=== PATIENT | female | born 1990 | race Asian ===

== ENCOUNTER 2023-04-19 15:45 | Inpatient (IN) | payer OTHER, SELFPAY ==
[2023-04-19] VITALS (9 sets, daily range): BP systolic 120–144; BP diastolic 68–81; PULSE 80–87; RESP 16–17; TEMP 36.5–36.6; O2SAT 99–100; BMI 25.9
--- NOTE | 2023-04-19 15:55 | ED.GENADULT ---
HPI - General Adult <Rico Henao DO - Last Filed: 04/20/23 07:02> General Chief complaint: Abdominal Pain Stated complaint: STOMACH PAIN/RIGHT SIDE GALLBLADDER POSSIBLY Time Seen by Provider: 04/19/23 15:53 Source: patient and family Mode of arrival: Ambulatory Limitations: no limitations History of Present Illness HPI narrative: 32-year-old female who is here for evaluation of upper abdominal discomfort. She states that she is had pain in this area off and on for sometimes specifically after eating spicy food however it has become more frequent recently. She denies any urinary symptoms. No constipation or diarrhea. No urinary symptoms. No chest pain or shortness of breath. No fevers. No prior abdominal surgeries. Has not tried anything for symptoms prior to arrival. Related Data Previous Rx's Medication Instructions Recorded drospirenone 3 mg-ethinyl 1 tab PO DAILY #28 tabs 12/09/22 estradiol 0.02 mg tablet (CHONG (28)) Allergies Allergy/AdvReac Type Severity Reaction Status Date / Time No Known Drug Allergies Allergy Verified 04/19/23 15:56 Review of Systems <Rico Henao DO - Last Filed: 04/20/23 07:02> Constitutional Constitutional: Reports system reviewed and no additional complaints, except as documented Cardiovascular Cardiovascular: Reports system reviewed and no additional complaints, except as documented Respiratory Respiratory: Reports system reviewed and no additional complaints, except as documented Gastrointestinal Gastrointestinal: Reports system reviewed and no additional complaints, except as documented Musculoskeletal Musculoskeletal: Reports system reviewed and no additional complaints, except as documented Integumentary/Breasts Skin/Breast: Reports system reviewed and no additional complaints, except as documented Hematologic/Lymphatic On Anticoagulants: No Patient History <Rico Henao DO - Last Filed: 04/20/23 07:02> Social History household members: spouse Smoking Status: Never smoker Smoking Status: Never smoker Exam <Rico Henao DO - Last Filed: 04/20/23 07:02> Initial Vital Signs Initial Vital Signs: Vital Signs Temperature 97.9 F 04/19/23 15:52 Pulse Rate 80 04/19/23 15:52 Respiratory Rate 17 04/19/23 15:52 Blood Pressure 144/81 H 04/19/23 15:52 Pulse Oximetry 100 04/19/23 15:52 Oxygen Delivery Method Room Air 04/19/23 15:52 HENMT Head: normal to inspection and normocephalic Resp Effort & Inspection: normal respiratory effort Auscultation: clear to auscultation bilaterally Cardio Rate: regular rate GI Inspection: normal to inspection and distended Palpation: soft, No firm, No guarding and tender (Right upper quadrant) Skin General: no rashes or lesions noted Neuro General: patient alert, patient awake and moves all extremities Extrem General: capillary refill normal <Lidia Raymond MD - Last Filed: 04/19/23 19:37> Initial Vital Signs Initial Vital Signs: Vital Signs Temperature 97.9 F 04/19/23 15:52 Pulse Rate 80 04/19/23 15:52 Respiratory Rate 17 04/19/23 15:52 Blood Pressure 144/81 H 04/19/23 15:52 Pulse Oximetry 100 04/19/23 15:52 Oxygen Delivery Method Room Air 04/19/23 15:52 Course <Rico Henao DO - Last Filed: 04/20/23 07:02> Orders Ordered: Hydromorphone HCl (Hydromorphone 0.5 Mg Inj) 0.5 mg IV Q2H PRN PRN Reason: Pain, Severe (7-10) Last Admin: 04/19/23 22:47 Dose: 0.5 mg Documented By: AT Sodium Chloride (Normal Saline 0.9%) 1,000 mls @ 125 mls/hr IV CONT ALEXANDRA Last Admin: 04/20/23 03:46 Dose: 125 mls/hr Documented By: Infusion: 04/20/23 03:46 Dose: 125 mls/hr Documented By: Admin: 04/19/23 19:52 Dose: 125 mls/hr Documented By: Discontinued Medications Al Hydrox/Mg Hydrox/Simethicone 20 ml/ Lidocaine HCl 15 ml 0 ml PO NOW ONE Stop: 04/19/23 16:00 Last Admin: 04/19/23 16:26 Dose: 20 ml Documented By: MPO Sodium Chloride (Normal Saline 0.9%) 1,000 mls @ 1,000 mls/hr IV BOLUS ONE Stop: 04/19/23 16:58 Last Infusion: 04/19/23 17:35 Dose: 0 mls/hr Documented By: Admin: 04/19/23 16:25 Dose: 1,000 mls/hr Documented By: MPO Pantoprazole Sodium (Pantoprazole 40 Mg Vial) 40 mg IV NOW ONE Stop: 04/19/23 16:00 Last Admin: 04/19/23 16:25 Dose: 40 mg Documented By: MPO Vital Signs Vital signs: Vital Signs - 8 hr 04/19/23 15:52 04/19/23 17:39 04/19/23 17:41 Temperature 97.9 F Pulse Rate 80 Respiratory Rate 17 Blood Pressure 144/81 H 144/81 H 131/68 Pulse Oximetry 100 Oxygen Delivery Method Room Air 04/19/23 17:41 04/19/23 17:45 04/19/23 18:00 Temperature Pulse Rate 83 83 87 Respiratory Rate Blood Pressure Pulse Oximetry 100 100 100 Oxygen Delivery Method 04/19/23 18:15 04/19/23 18:30 04/19/23 18:39 Temperature Pulse Rate 83 84 Respiratory Rate Blood Pressure 120/78 Pulse Oximetry 100 99 Oxygen Delivery Method 04/19/23 18:39 Temperature Pulse Rate 87 Respiratory Rate Blood Pressure Pulse Oximetry 100 Oxygen Delivery Method <Lidia Raymond MD - Last Filed: 04/19/23 19:37> Orders Ordered: Hydromorphone HCl (Hydromorphone 0.5 Mg Inj) 0.5 mg IV Q2H PRN PRN Reason: Pain, Severe (7-10) Last Admin: 04/19/23 22:47 Dose: 0.5 mg Documented By: AT Sodium Chloride (Normal Saline 0.9%) 1,000 mls @ 125 mls/hr IV CONT ALEXANDRA Last Admin: 04/20/23 03:46 Dose: 125 mls/hr Documented By: Infusion: 04/20/23 03:46 Dose: 125 mls/hr Documented By: Admin: 04/19/23 19:52 Dose: 125 mls/hr Documented By: Discontinued Medications Al Hydrox/Mg Hydrox/Simethicone 20 ml/ Lidocaine HCl 15 ml 0 ml PO NOW ONE Stop: 04/19/23 16:00 Last Admin: 04/19/23 16:26 Dose: 20 ml Documented By: MPO Sodium Chloride (Normal Saline 0.9%) 1,000 mls @ 1,000 mls/hr IV BOLUS ONE Stop: 04/19/23 16:58 Last Infusion: 04/19/23 17:35 Dose: 0 mls/hr Documented By: Admin: 04/19/23 16:25 Dose: 1,000 mls/hr Documented By: MERLENE Pantoprazole Sodium (Pantoprazole 40 Mg Vial) 40 mg IV NOW ONE Stop: 04/19/23 16:00 Last Admin: 04/19/23 16:25 Dose: 40 mg Documented By: MERLENE Vital Signs Vital signs: Vital Signs - 8 hr 04/19/23 15:52 04/19/23 17:39 04/19/23 17:41 Temperature 97.9 F Pulse Rate 80 Respiratory Rate 17 Blood Pressure 144/81 H 144/81 H 131/68 Pulse Oximetry 100 Oxygen Delivery Method Room Air 04/19/23 17:41 04/19/23 17:45 04/19/23 18:00 Temperature Pulse Rate 83 83 87 Respiratory Rate Blood Pressure Pulse Oximetry 100 100 100 Oxygen Delivery Method 04/19/23 18:15 04/19/23 18:30 04/19/23 18:39 Temperature Pulse Rate 83 84 Respiratory Rate Blood Pressure 120/78 Pulse Oximetry 100 99 Oxygen Delivery Method 04/19/23 18:39 Temperature Pulse Rate 87 Respiratory Rate Blood Pressure Pulse Oximetry 100 Oxygen Delivery Method Medical Decision Making <Rico Henao DO - Last Filed: 04/20/23 07:02> Lab Data Lab results reviewed: Yes I reviewed the patient's lab results. 04/19/23 16:02 04/19/23 16:02 Labs: Lab Results 04/19/23 04/19/23 04/19/23 Range/Units 16:02 16:02 16:02 WBC 11.9 H (4.5-11.0) X10^3/uL RBC 4.72 (4.0-5.2) X10^6/uL Hgb 13.0 (12.0-16.0) g/dL Hct 39.4 (36-46) % MCV 83.4 (80-100) fL MCH 27.5 (26-34) PG MCHC 33.0 (30-36) % RDW 12.6 (11.6-14.8) % Plt Count 410 H (150-400) X10^3/uL Neut % (Auto) 70.7 (50-75) % Lymph % (Auto) 18.9 L (25-40) % [place] % (Auto) 6.5 (3-14) % Eos % (Auto) 3.5 (2-4) % Baso % (Auto) 0.4 (0-2) % Neut # (Auto) 8400 H (1112-7386) /uL Lymph # (Auto) 2200 (7551-7449) /uL [place] # (Auto) 800 (0-900) /uL Eos # (Auto) 400 (0-450) /uL Baso # (Auto) 0 (0-100) /uL Sodium 137 (137-145) mmol/L Potassium 3.9 (3.4-5.1) mmol/L Chloride 102 (98-107) mmol/L Carbon Dioxide 27 (22-32) mmol/L BUN 7 (7-17) mg/dL Creatinine 0.62 (0.52-1.04) mg/dL Estimated GFR > 60 (>60) mL/min BUN/Creatinine Ratio 11.3 (6-22) Glucose 129 H (70-100) mg/dL Calcium 9.9 (8.4-10.2) mg/dL Total Bilirubin 2.0 H (0.2-1.3) mg/dL AST 230 H (14-36) IU/L ALT 168 H (<35) IU/L Alkaline Phosphatase 104 (38-126) U/L Total Protein 8.7 H (6.3-8.2) g/dL Albumin 4.5 (3.5-5.0) g/dL Globulin 4.2 H (1.7-4.1) g/dL Albumin/Globulin Ratio 1.1 (1.0-2.8) Lipase 68 (23-300) U/L Serum , Qual (Negative) 04/19/23 Range/Units 16:02 WBC (4.5-11.0) X10^3/uL RBC (4.0-5.2) X10^6/uL Hgb (12.0-16.0) g/dL Hct (36-46) % MCV (80-100) fL MCH (26-34) PG MCHC (30-36) % RDW (11.6-14.8) % Plt Count (150-400) X10^3/uL Neut % (Auto) (50-75) % Lymph % (Auto) (25-40) % [place] % (Auto) (3-14) % Eos % (Auto) (2-4) % Baso % (Auto) (0-2) % Neut # (Auto) (0674-4724) /uL Lymph # (Auto) (3484-0740) /uL [place] # (Auto) (0-900) /uL Eos # (Auto) (0-450) /uL Baso # (Auto) (0-100) /uL Sodium (137-145) mmol/L Potassium (3.4-5.1) mmol/L Chloride (98-107) mmol/L Carbon Dioxide (22-32) mmol/L BUN (7-17) mg/dL Creatinine (0.52-1.04) mg/dL Estimated GFR (>60) mL/min BUN/Creatinine Ratio (6-22) Glucose (70-100) mg/dL Calcium (8.4-10.2) mg/dL Total Bilirubin (0.2-1.3) mg/dL AST (14-36) IU/L ALT (<35) IU/L Alkaline Phosphatase (38-126) U/L Total Protein (6.3-8.2) g/dL Albumin (3.5-5.0) g/dL Globulin (1.7-4.1) g/dL Albumin/Globulin Ratio (1.0-2.8) Lipase (23-300) U/L Serum , Qual Negative (Negative) Urine Dip Bedside Urine Glucose Negative Bedside Urine Bilirubin - Negative Bedside Urine Ketone - Negative Urine Specific [place] 1.010 Bedside Urine Occult Blood - Negative Bedside Urine pH 6.0 Bedside Urine Protein - Negative Bedside Urine Urobilinogen - Negative Bedside Urine Nitrite - Negative Bedside Urine Leukocytes +++ 500 Esterase Point of care testing: Urine Dip Bedside Urine Glucose Negative Bedside Urine Bilirubin - Negative Bedside Urine Ketone - Negative Urine Specific [place] 1.010 Bedside Urine Occult Blood - Negative Bedside Urine pH 6.0 Bedside Urine Protein - Negative Bedside Urine Urobilinogen - Negative Bedside Urine Nitrite - Negative Bedside Urine Leukocytes +++ 500 Esterase Imaging Data US - abdomen: Radiologist's Impression: PROCEDURE: US ABDOMEN LIMITED ? INDICATIONS:? RIGHT UPPER QUADRANT PAIN ? TECHNIQUE:? Real-time focused scanning was performed of the abdomen, with image documentation.? ? COMPARISON:? None. ? FINDINGS:? Liver demonstrates mildly prominent size.? The liver demonstrates normal overall echogenicity.? Within the right liver, there is a nonvascular hyperechoic nonshadowing focus that measures up to 1.4 cm, which is attributed to a hemangioma. ? Multiple gallstones are seen within the fundus of the gallbladder.? These are nonmobile.? The largest measures 7 mm.? ? The gallbladder wall is not thickened, measuring 3 mm or less.? No specific pericholecystic fluid is seen.? The sonographic Roberts sign is negative. ? The cystic duct is enlarged at 7.3 mm.? The common bile duct is also mildly enlarged at 8.6 mm. ? No significant pancreatic abnormality is seen on these images.? ? Within the right kidney, there are 2 nonshadowing hyperechoic foci that measure up to 13 mm and up to 9 mm, which are attributed to benign fatty lesions. ? ? ? IMPRESSION:? Fundal gallstones seen, with an enlarged cystic duct.? There is mild suspicion for cholecystitis.? ? The common bile duct is also mildly enlarged. ? ? ? Additional findings:? Liver hemangioma Benign fat containing right renal lesions MDM Narrative Medical decision making narrative: Patient has epigastric discomfort has an elevated bilirubin. Elevated LFTs. Ultrasound is concerning for cholelithiasis and dilation of the common bile duct which is concerning for choledocholithiasis. Patient does have a benign abdominal exam. I do not have MRI capability at this facility currently. Care turned over to Dr. Raymond for disposition. <Lidia Raymond MD - Last Filed: 04/19/23 19:37> Lab Data Labs: Lab Results 04/19/23 04/19/23 04/19/23 Range/Units 16:02 16:02 16:02 WBC 11.9 H (4.5-11.0) X10^3/uL RBC 4.72 (4.0-5.2) X10^6/uL Hgb 13.0 (12.0-16.0) g/dL Hct 39.4 (36-46) % MCV 83.4 (80-100) fL MCH 27.5 (26-34) PG MCHC 33.0 (30-36) % RDW 12.6 (11.6-14.8) % Plt Count 410 H (150-400) X10^3/uL Neut % (Auto) 70.7 (50-75) % Lymph % (Auto) 18.9 L (25-40) % [place] % (Auto) 6.5 (3-14) % Eos % (Auto) 3.5 (2-4) % Baso % (Auto) 0.4 (0-2) % Neut # (Auto) 8400 H (0133-6783) /uL Lymph # (Auto) 2200 (4200-6044) /uL [place] # (Auto) 800 (0-900) /uL Eos # (Auto) 400 (0-450) /uL Baso # (Auto) 0 (0-100) /uL Sodium 137 (137-145) mmol/L Potassium 3.9 (3.4-5.1) mmol/L Chloride 102 (98-107) mmol/L Carbon Dioxide 27 (22-32) mmol/L BUN 7 (7-17) mg/dL Creatinine 0.62 (0.52-1.04) mg/dL Estimated GFR > 60 (>60) mL/min BUN/Creatinine Ratio 11.3 (6-22) Glucose 129 H (70-100) mg/dL Calcium 9.9 (8.4-10.2) mg/dL Total Bilirubin 2.0 H (0.2-1.3) mg/dL AST 230 H (14-36) IU/L ALT 168 H (<35) IU/L Alkaline Phosphatase 104 (38-126) U/L Total Protein 8.7 H (6.3-8.2) g/dL Albumin 4.5 (3.5-5.0) g/dL Globulin 4.2 H (1.7-4.1) g/dL Albumin/Globulin Ratio 1.1 (1.0-2.8) Lipase 68 (23-300) U/L Serum , Qual (Negative) 04/19/23 Range/Units 16:02 WBC (4.5-11.0) X10^3/uL RBC (4.0-5.2) X10^6/uL Hgb (12.0-16.0) g/dL Hct (36-46) % MCV (80-100) fL MCH (26-34) PG MCHC (30-36) % RDW (11.6-14.8) % Plt Count (150-400) X10^3/uL Neut % (Auto) (50-75) % Lymph % (Auto) (25-40) % [place] % (Auto) (3-14) % Eos % (Auto) (2-4) % Baso % (Auto) (0-2) % Neut # (Auto) (5749-7148) /uL Lymph # (Auto) (1064-0303) /uL [place] # (Auto) (0-900) /uL Eos # (Auto) (0-450) /uL Baso # (Auto) (0-100) /uL Sodium (137-145) mmol/L Potassium (3.4-5.1) mmol/L Chloride (98-107) mmol/L Carbon Dioxide (22-32) mmol/L BUN (7-17) mg/dL Creatinine (0.52-1.04) mg/dL Estimated GFR (>60) mL/min BUN/Creatinine Ratio (6-22) Glucose (70-100) mg/dL Calcium (8.4-10.2) mg/dL Total Bilirubin (0.2-1.3) mg/dL AST (14-36) IU/L ALT (<35) IU/L Alkaline Phosphatase (38-126) U/L Total Protein (6.3-8.2) g/dL Albumin (3.5-5.0) g/dL Globulin (1.7-4.1) g/dL Albumin/Globulin Ratio (1.0-2.8) Lipase (23-300) U/L Serum , Qual Negative (Negative) Urine Dip Bedside Urine Glucose Negative Bedside Urine Bilirubin - Negative Bedside Urine Ketone - Negative Urine Specific [place] 1.010 Bedside Urine Occult Blood - Negative Bedside Urine pH 6.0 Bedside Urine Protein - Negative Bedside Urine Urobilinogen - Negative Bedside Urine Nitrite - Negative Bedside Urine Leukocytes +++ 500 Esterase Point of care testing: Urine Dip Bedside Urine Glucose Negative Bedside Urine Bilirubin - Negative Bedside Urine Ketone - Negative Urine Specific [place] 1.010 Bedside Urine Occult Blood - Negative Bedside Urine pH 6.0 Bedside Urine Protein - Negative Bedside Urine Urobilinogen - Negative Bedside Urine Nitrite - Negative Bedside Urine Leukocytes +++ 500 Esterase [facility] Narrative Medical decision making narrative: Patient has epigastric discomfort has an elevated bilirubin. Elevated LFTs. Ultrasound is concerning for cholelithiasis and dilation of the common bile duct which is concerning for choledocholithiasis. Patient does have a benign abdominal exam. I do not have MRI capability at this facility currently. Care turned over to Dr. Raymond for disposition. Dr Raymond Care is accepted, patient is independently examined. Chart is reviewed. CBC has mild leukocytosis at 11.9 without left shift and no acute anemia Metabolic panel is remarkable for a bilirubin at 2, AST and ALT are relatively unremarkable lipase is reassuring Probable common duct stone with elevated bilirubin, AST and ALT without evidence of acute cholecystitis, ascending cholangitis or pancreatitis. She is still having colicky right upper quadrant pain. There is evidence of acute infection or sepsis, no indication for IV antibiotics at this time. Pain medication is offered. Consultation: Care is discussed with Dr. Thao, surgery. Her recommendation was to admit the patient to her service overnight, see if the stone actually passes spontaneously, repeat blood work in the morning and consider cholecystectomy within the next 24-48 hours with intraoperative cholangiogram as indicated. She stated that eating may actually be helpful and did not request that this patient be NPO after midnight. This is discussed with the patient and she is amenable to plan as outlined. ER transition orders are entered. Discharge Plan Departure Patient Disposition: Admitted as Observation Clinical Impression: Common bile duct calculus, Elevated liver enzymes Admit Date/Time: 04/19/23 19:29 Admit Provider: Sandra Thao
--- NOTE | 2023-04-19 16:00 | DI.US.S_ITS ---
PROCEDURE: US ABDOMEN LIMITED INDICATIONS: RIGHT UPPER QUADRANT PAIN TECHNIQUE: Real-time focused scanning was performed of the abdomen, with image documentation. COMPARISON: None. FINDINGS: Liver demonstrates mildly prominent size. The liver demonstrates normal overall echogenicity. Within the right liver, there is a nonvascular hyperechoic nonshadowing focus that measures up to 1.4 cm, which is attributed to a hemangioma. Multiple gallstones are seen within the fundus of the gallbladder. These are nonmobile. The largest measures 7 mm. The gallbladder wall is not thickened, measuring 3 mm or less. No specific pericholecystic fluid is seen. The sonographic Roberts sign is negative. The cystic duct is enlarged at 7.3 mm. The common bile duct is also mildly enlarged at 8.6 mm. No significant pancreatic abnormality is seen on these images. Within the right kidney, there are 2 nonshadowing hyperechoic foci that measure up to 13 mm and up to 9 mm, which are attributed to benign fatty lesions. IMPRESSION: Fundal gallstones seen, with an enlarged cystic duct. There is mild suspicion for cholecystitis. The common bile duct is also mildly enlarged. Additional findings: Liver hemangioma Benign fat containing right renal lesions Dictated by: Burak Reeves M.D. on 04/19/2023 at 16:36 Approved by: Burak Reeves M.D. on 04/19/2023 at 16:40
[2023-04-19 16:10] LABS: Add Manual Diff / Slide Review NO; Basophils Absolute Auto 0 /uL (0-100); Basophils Percent Auto 0.4 % (0-2); Eosinophils Absolute Auto 400 /uL (0-450); Eosinophils Percent Auto 3.5 % (2-4); Hematocrit 39.4 % (36-46); Lymphocytes Absolute Auto 2200 /uL (1100-4500); Lymphocytes Percent Auto 18.9 % (25-40); Mean Corpuscular Hemoglobin 27.5 PG (26-34); Mean Corpuscular Volume 83.4 fL (80-100); Monocytes Absolute Auto 800 /uL (0-900); Monocytes Percent Auto 6.5 % (3-14); Neutrophils Absolute Auto 8400 /uL (1500-7000); Neutrophils Percent Auto 70.7 % (50-75); Platelet Count 410 X10^3/uL (150-400); Red Blood Cell Count 4.72 X10^6/uL (4.0-5.2); Red Cell Distribution Width 12.6 % (11.6-14.8); White Blood Cell Count 11.9 X10^3/uL (4.5-11.0)
[2023-04-19] MEDS: SODIUM CHLORIDE 0.9% 1,000 ML 1000 ML IV (16:25)
[2023-04-19] MEDS: PANTOPRAZOLE 40 MG VIAL IV (16:25)
[2023-04-19 16:26] LABS: Alanine Aminotransferase 168 IU/L (<35); Albumin 4.5 g/dL (3.5-5.0); Albumin Globulin Ratio 1.1 (1.0-2.8); Alkaline Phosphatase 104 U/L (38-126); Aspartate Aminotransferase 230 IU/L (14-36); BUN Creatinine Ratio 11.3 (6-22); Blood Urea Nitrogen 7 mg/dL (7-17); Calcium 9.9 mg/dL (8.4-10.2); Carbon Dioxide 27 mmol/L (22-32); Chloride 102 mmol/L (98-107); Estimated Glomerular Filt Rate > 60 mL/min (>60); Globulin 4.2 g/dL (1.7-4.1); Glucose 129 mg/dL (70-100); HEMOLYSIS < 15 (0-50); Lipase 68 U/L (23-300); Potassium 3.9 mmol/L (3.4-5.1); Sodium 137 mmol/L (137-145); Total Protein 8.7 g/dL (6.3-8.2)
[2023-04-19] MEDS: MAG HYDROX/ALUMINUM/SIMETH SUS 20 ML, LIDOCAINE VISCOUS 2% 15 ML PO (16:26)
--- NOTE | 2023-04-19 17:38 | DI.MRI.S_ITS ---
PROCEDURE: MR ABDOMEN WO/W CON INDICATIONS: Eval for CBD stone TECHNIQUE: Coronal HASTE, axial 2D FLASH in- and [id number]; axial breath-hold T2 FSE. Dynamic axial VIBE during the administration of contrast; post-contrast coronal VIBE or 2D FLASH with fat saturation from the hepatic dome to the iliac crests. Optional diffusion weighted imaging and ADC may be performed. COMPARISON: [facility], , US ABDOMEN LIMITED, 04/19/2023, 16:42. FINDINGS: Image quality: Degraded by motion artifact. Lung bases: No basal pleural effusions. Heart size is normal. Solid organs: Liver is normal in size and enhancement. Gallbladder demonstrates multiple calculi within its lumen. There is thickening of the gallbladder wall, measuring 4 mm diameter. Biliary system is non dilated. No definite calculi within the biliary tree, although evaluation for such is limited secondary to motion artifact. Pancreas is normal in morphology. Spleen is normal in size and enhancement. No adrenal nodules. Both kidneys demonstrate normal size and enhancement, without hydronephrosis. Nodes and vessels: No retroperitoneal or mesenteric adenopathy by size criteria. Aorta and inferior vena cava are normal in size. Bowel and peritoneum: Unenhanced bowel loops are normal in caliber. No free fluid. Bones and soft tissues: No ventral hernias. Bone marrow is normal in overall signal. IMPRESSION: 1. Limited examination secondary to motion artifact. 2. Cholelithiasis with gallbladder wall thickening, consistent with cholecystitis. 3. No biliary ductal dilatation. 4. Evaluation for small nonobstructing common bile duct calculi is limited secondary to motion artifact. ERCP could be performed for further assessment, if clinically indicated. Dictated by: Fiorella Lau M.D. on 04/20/2023 at 9:04 Approved by: Fiorella Lau M.D. on 04/20/2023 at 9:06
[2023-04-19 17:59] LABS: Pregnancy Test Serum,Qual Negative (Negative)
[2023-04-19] MEDS: SODIUM CHLORIDE 0.9% 1,000 ML 125 ML IV (19:52)
[2023-04-19] MEDS: HYDROMORPHONE 0.5 MG INJ IV (22:47)
[2023-04-20] VITALS (7 sets, daily range): BP systolic 107–133; BP diastolic 66–83; PULSE 79–98; RESP 16–18; TEMP 36.2–36.3; O2SAT 97–100
[2023-04-20] MEDS: SODIUM CHLORIDE 0.9% 1,000 ML 125 ML IV ×3 (03:46→21:11)
--- NOTE | 2023-04-20 10:04 | PC.NURSE ---
Day shift: Called MD Thao since this RN was told in report that pt should be NPO, but no orders in place. Bridge orders from ED. Let MD Thao know about report from MRI yesterday evening. She said ok for patient to eat and ordered liver enzyme panel. MD Thao she would be in to see patient soon. Will continue to monitor.
[2023-04-20 10:23] LABS: Alanine Aminotransferase 199 IU/L (<35); Albumin 4.2 g/dL (3.5-5.0); Albumin Globulin Ratio 1.1 (1.0-2.8); Alkaline Phosphatase 114 U/L (38-126); Aspartate Aminotransferase 180 IU/L (14-36); Bilirubin Unconjugated 0.7 mg/dL (0.0-1.1); Globulin 3.8 g/dL (1.7-4.1); HEMOLYSIS < 15 (0-50)
--- NOTE | 2023-04-20 10:41 | CM.DANOTE ---
DCP: Case received, EMR reviewed and met with patient. Spouse, Jones, was at bedside. Introduced self and role. Completed DCP assessment based upon information currently available. Patient is a 32 year old female who admitted yesterday evening to the care of the hospitalist team. PCP: Dr. Butler. Payer: confirmed: [employer]. Patient came to the hospital via private vehicle secondary to upper abdominal discomfort. Patient had noted an elevated bilirubin, as well as LFTs, ultrasound had noted cholelithiasis and dilation of the common bile duct, concerning for choledocholithiasis. Patient will be having surgery consult, is currently NPO. Met with patient in her room. She was sitting by her window with spouse, alert, stated, she was feeling somewhat better, waiting to see surgeon. Confirmed that she resides with spouse in [place] on [address] [place], [place] developed her symptoms. She is employed at [employer], in [place]. P: DCP to continue to follow. Surgeon will see patient, unclear if surgery, or if transfer, will follow closely. Marci Wheeler RN,Applied Psychology Professor Discharge Planning/Care Management CM Discharge Assessment Start: 04/20/23 10:40 Freq: Status: Active Protocol: Document 04/20/23 10:40 (Rec: 04/20/23 10:41 [email or web address]) Discharge Planning Assessment Assigned Associate Director Qa Marci Wheeler RN/Applied Psychology Professor Advance Directives? No History Provided By Patient,Medical Record Prior Living Arrangements House Household Members spouse Type of transporation used prior to Drives own vehicle admit Independent with ADL's Yes Is patient alert and oriented? Yes Caregiver for Another No Barriers to Discharge No Discharge Plan Home Referrals Initiated None needed Whiteboard Updated in Patient Room with Yes name and ext. # of Associate Director Qa Review Status In Process Next Review Type Continued Stay Review
--- NOTE | 2023-04-20 19:02 | P.HP_ITS ---
History of Present Illness History of Present Illness Date Patient Seen: 04/20/23 Time Patient Seen: 19:02 Chief complaint: STOMACH PAIN/RIGHT SIDE GALLBLADDER POSSIBLY Narrative: 32-year-old female presented to the emergency room with severe right upper quadrant abdominal pain. She says it started about a month ago with some back pain that she maybe thought was reflux but the reflux she is had before was not in the back and this was more severe intermittent pain. This episode started Friday afternoon and it continued into Friday started in the back with severe pain and began to feel nauseated as well she forced herself to vomit and this did not actually help very much. She does not remember what she ate and has no association with certain foods that are associated with the pain. Today this afternoon the pain improved and she tolerated some regular food this afternoon and was actually feeling much better as of this evening. She understands the gallbladder likely to be the cause this and is interested in cholecystectomy when and if the stone passes. She has not ever had abdominal surgery before. [facility] Social History household members: spouse Smoking Status: Never smoker Meds Home Medications and Allergies Home Medications Medication Instructions Recorded Confirmed Type drospirenone 3 mg-ethinyl 1 tab PO DAILY #28 tabs 12/09/22 04/19/23 Rx estradiol 0.02 mg tablet (CHONG (28)) Allergies Allergy/AdvReac Type Severity Reaction Status Date / Time No Known Drug Allergies Allergy Verified 04/19/23 15:56 Exam Vital Signs (past 8 hours): - 04/20/23 12:05 04/20/23 16:00 04/20/23 16:43 Temperature 97.2 F L 97.3 F L Pulse Rate 92 H 81 Respiratory Rate 18 17 Blood Pressure 121/80 123/82 Pulse Oximetry 99 97 100 Oxygen Flow Rate 0 0 Oxygen Delivery Method Room Air Oxygen Flow Rate 0 Const General: cooperative, healthy appearing, comfortable and No acute distress Nutritional Appearance: average body habitus and well nourished Orientation: alert, awake and oriented x3 HENMT Head: normal to inspection Mouth: oral mucosae normal Eyes General: appearance normal, both eyes and all related structures Resp Effort & Inspection: normal respiratory effort and able to speak in complete sentences Cardio Pulses: radial pulses present GI Palpation: soft and tender (Very minimal tenderness right upper quadrant ) Skin General: no rashes or lesions noted Extrem General: normal to inspection Objective Labs 04/19/23 16:02 04/19/23 16:02 Labs: Laboratory Results - last 24 hr 04/20/23 10:05 Total Bilirubin 2.0 H Conjugated Bilirubin 0.0 Unconjugated Bilirubin 0.7 AST 180 H ALT 199 H Alkaline Phosphatase 114 Total Protein 8.0 Albumin 4.2 Globulin 3.8 Albumin/Globulin Ratio 1.1 Assessment & Plan Assessment and plan (1) Common bile duct calculus: Status: Acute (2) Elevated liver enzymes: Status: Acute Assessment & Plan narrative: An MRI was ordered in the emergency room and no really useful read due to motion artifact was found. I actually did not recommend this MRI I thought we would just trend her LFTs as often times a common bile stone with a mild bilirubin elevation will pass without intervention. At this point her bilirubin has been 2 at admission and also this morning however her symptoms are seriously improved this evening and I think I would recommend at this time to recheck bilirubin in the morning if it is improved I would proceed with cholecystectomy and intraoperative cholangiogram. If the bilirubin is upper stable then options remain possibly repeating an MRI and or transferring for ERCP. I will hand off to Dr. Herron in the morning for this decision making as of tomorrow.
[2023-04-21 06:43] LABS: Add Manual Diff / Slide Review NO; Basophils Absolute Auto 100 /uL (0-100); Eosinophils Absolute Auto 1100 /uL (0-450); Hematocrit 36.3 % (36-46); Hemoglobin 11.9 g/dL (12.0-16.0); Lymphocytes Absolute Auto 2400 /uL (1100-4500); Lymphocytes Percent Auto 30.2 % (25-40); Mean Corpuscular HGB Conc 32.7 % (30-36); Mean Corpuscular Hemoglobin 27.5 PG (26-34); Mean Corpuscular Volume 83.9 fL (80-100); Monocytes Absolute Auto 500 /uL (0-900); Monocytes Percent Auto 5.9 % (3-14); Neutrophils Absolute Auto 3800 /uL (1500-7000); Neutrophils Percent Auto 48.9 % (50-75); Platelet Count 372 X10^3/uL (150-400); Red Blood Cell Count 4.33 X10^6/uL (4.0-5.2); Red Cell Distribution Width 12.8 % (11.6-14.8); White Blood Cell Count 7.8 X10^3/uL (4.5-11.0)
[2023-04-21 07:00] VITALS: BP 116/75; PULSE 74; RESP 23; TEMP 36.3; O2SAT 100
[2023-04-21 07:04] LABS: Alanine Aminotransferase 150 IU/L (<35); Albumin 3.7 g/dL (3.5-5.0); Alkaline Phosphatase 93 U/L (38-126); Aspartate Aminotransferase 66 IU/L (14-36); BUN Creatinine Ratio 10.5 (6-22); Bilirubin Total 0.4 mg/dL (0.2-1.3); Blood Urea Nitrogen 6 mg/dL (7-17); Calcium 8.7 mg/dL (8.4-10.2); Carbon Dioxide 25 mmol/L (22-32); Chloride 105 mmol/L (98-107); Estimated Glomerular Filt Rate > 60 mL/min (>60); Globulin 3.7 g/dL (1.7-4.1); Glucose 98 mg/dL (70-100); HEMOLYSIS < 15 (0-50); Potassium 3.9 mmol/L (3.4-5.1); Sodium 138 mmol/L (137-145); Total Protein 7.4 g/dL (6.3-8.2)
[2023-04-21 07:05] LABS: Alanine Aminotransferase 146 IU/L (<35); Albumin 3.6 g/dL (3.5-5.0); Albumin Globulin Ratio 1.1 (1.0-2.8); Alkaline Phosphatase 96 U/L (38-126); Aspartate Aminotransferase 64 IU/L (14-36); Bilirubin Total 0.5 mg/dL (0.2-1.3); Bilirubin Unconjugated 0.2 mg/dL (0.0-1.1); Globulin 3.2 g/dL (1.7-4.1); HEMOLYSIS < 15 (0-50); Total Protein 6.8 g/dL (6.3-8.2)
--- NOTE | 2023-04-21 11:50 | CM.DPC ---
DCP Cont. Reviewed EMR for medical status and d/c updates. Met with pt/spouse at bedside to discuss questions and concerns they had re: insurance, resources for financial assistance. Per pt/spouse, she is feeling much better, is eating well, and they have decided to delay the cholecystectomy due to insurance reasons. Per spouse, since they did not have a referral for the surgery, it would not be covered by insurance. They plan on seeing his PCP on [place] to obtain a referral, if she has another flare-up in the future. BENZENE WASHER provided the [facility] Care Application for them to explore eligibility for some financial assistance with their inpt bill from this stay. No further d/c needs indicated at this time.
--- NOTE | 2023-04-21 12:25 | P.DS_ITS ---
History of Present Illness History of Present Illness Chief complaint: STOMACH PAIN/RIGHT SIDE GALLBLADDER POSSIBLY Discharge Providers Provider Date of admission: 04/19/23 19:29 Discharge Date: 04/21/23 Primary care physician: Monica Butler PA-C Consults: 04/19/23 19:37 Consult to General Surgery Urgent Comment: Consulting Provider: Sandra Thao Reason for consultation: common duct stone, cholelithiasis Has provider been notified: Yes Discharge provider: Terence Herron MD Summary Hospital Course Discharge Diagnosis: Gallstones Hospital Course: The patient was admitted with gallstones and suspicion for choledocholithiasis. Soon after her admission her symptoms resolved and her liver enzymes all came do wn. We discussed laparoscopic cholecystectomy with intraoperative cholangiogram. The patient and her spouse opted to be discharged home since her symptoms had improved. Recommendation was made to follow-up for an elective outpatient laparoscopic cholecystectomy. Exam Vital Signs (past 8 hours): - 04/21/23 07:00 Temperature 97.3 F L Pulse Rate 74 Respiratory Rate 23 Blood Pressure 116/75 Pulse Oximetry 100 Oxygen Delivery Method Room Air Oxygen Flow Rate 0 Objective Labs 04/21/23 06:28 04/21/23 06:28 Labs: Laboratory Results - last 24 hr 04/21/23 04/21/23 04/21/23 06:28 06:28 06:28 WBC 7.8 RBC 4.33 Hgb 11.9 L Hct 36.3 MCV 83.9 MCH 27.5 MCHC 32.7 RDW 12.8 Plt Count 372 Neut % (Auto) 48.9 L D Lymph % (Auto) 30.2 Daniels % (Auto) 5.9 Eos % (Auto) 14.0 H Baso % (Auto) 1.0 Neut # (Auto) 3800 Lymph # (Auto) 2400 Daniels # (Auto) 500 Eos # (Auto) 1100 H Baso # (Auto) 100 Sodium 138 Potassium 3.9 Chloride 105 Carbon Dioxide 25 BUN 6 L Creatinine 0.57 Estimated GFR > 60 BUN/Creatinine Ratio 10.5 Glucose 98 Calcium 8.7 Total Bilirubin 0.4 0.5 Conjugated Bilirubin 0.0 Unconjugated Bilirubin 0.2 AST 66 H 64 H ALT 150 H 146 H Alkaline Phosphatase 93 96 Total Protein 7.4 6.8 Albumin 3.7 3.6 Globulin 3.7 3.2 Albumin/Globulin Ratio 1.0 1.1 PFSH Social History household members: spouse Smoking Status: Never smoker Discharge Plan Discharge Plan Patient Disposition: Home Provider Discharge Comment: [facility]up [facility] to discuss outpatient laparoscopic cholecystectomy. Discharge orders & Medications Prescriptions: Continued drospirenone-ethinyl estradiol [CHONG (28)] 3-0.02 mg tablet 1 tab PO DAILY Qty: 28 6RF Follow up/Referrals: Monica Butler PA-C [Primary Care Provider] - Visit Report/Discharge Packet Stand Alone Forms: Patient Portal/API, Stroke Signs & Symptoms Discharge Data Primary Care Provider: Monica Butler
--- NOTE | 2023-04-21 12:55 | PC.NURSE ---
Informed by patient and spouse that they are choosing to not have surgery today d/t insurance reasons, notified MD Herron, discharge orders obtained. Patient denies nausea, pain, SOB, chest pain. Up and walks around frequently. Discharge education given to patient and spouse, informed patient to f/u with PCP and gave contact info for MD Herron's office for f/u. PIV removed.
== END 2023-04-21 13:00 | disposition home or self-care (01) | DRG 446 ==
LOC: ED 18:15 → AC 19:37
PROVIDERS: Emergency Medicine; Admitting Provider Surgery; Emergency Provider Emergency Medicine; PCP Physician Assistant; Referring Provider Emergency Medicine; Visit Provider Surgery
DX: K80.70 Calculus of gallbladder and bile duct without cholecystitis without obstruction (principal)
CPT/HCPCS: 36415; 74183; 76705; 80053; 80076; 81003; 83690; 84703; 85025; 96361; 96374; 99221; 99238; 99284; A9579; C9113; J1170

== ENCOUNTER 2023-11-02 01:15 | Emergency (ER) | payer OTHER, SELFPAY ==
[2023-04-19 20:31] VITALS: BMI 25.9
[2023-11-02] VITALS (15 sets, daily range): BP systolic 87–118; BP diastolic 50–74; PULSE 79–98; RESP 17–18; TEMP 36.8; O2SAT 98–100; BMI 25.4
--- NOTE | 2023-11-02 01:15 | ED.ABDPAIN ---
HPI - Abdominal Pain <Violet Colby DO - Last Filed: 11/02/23 18:20> General Chief Complaint: Abdominal Pain Stated Complaint: Right upper quadrant pain Time Seen by Provider: 11/02/23 01:15 Source: patient, EMS, RN notes reviewed and old records reviewed Mode of arrival: EMS Limitations: no limitations History of Present Illness HPI narrative: 33-year-old female with history of gallstones. Patient presents with complaint of epigastric pain that radiates to the right upper quadrant and back. States similar to when she had her prior gallstones but more intense this evening. She has had some pain on and off this week particularly with spicy food. Denies fevers or chills. Had some nausea when she was flown over from [facility] but was not nauseated prior to this. Did not have any vomiting. Denies any chest pain or shortness of breath states she had a bowel movement earlier today. No black or bloody stools. No dysuria, urgency or frequency. No vaginal bleeding or discharge. Patient received fentanyl EN route which he states brought her pain from 10 to a 3 as well as a dose of Zofran. Patient was seen here in April of 2023 found to have a common bile duct calculus, was admitted it appeared to pass stone deferred cholecystectomy and intraoperative cholangiogram at that time has symptoms had resolved. Patient states he is still takes oral contraceptives. No other daily prescription medications. Denies any prior surgeries. No known drug allergies. No tobacco, occasional alcohol, no recreational drugs. Patient lives on [facility]. She is accompanied by her today. Related Data Previous Rx's Medication Instructions Recorded drospirenone 3 mg-ethinyl 1 tab PO DAILY #28 tabs 07/01/23 estradiol 0.02 mg tablet hydrocodone 5 mg-acetaminophen 325 1 tab PO Q6H PRN pain #10 tabs 11/02/23 mg tablet ondansetron 4 mg disintegrating 4 mg PO Q6-8H PRN nausea and 11/02/23 tablet vomiting #10 tabs Allergies Allergy/AdvReac Type Severity Reaction Status Date / Time No Known Drug Allergies Allergy Verified 04/29/23 08:11 Review of Systems <Violet Colby DO - Last Filed: 11/02/23 18:20> Review of Systems ROS Unobtainable: All systems reviewed & are unremarkable except as noted in HPI and below Patient History <Violet Colby DO - Last Filed: 11/02/23 18:20> Social History household members: spouse Smoking Status: Never smoker Exam <Violet Colby DO - Last Filed: 11/02/23 18:20> Narrative Exam Narrative: GENERAL: Alert and oriented x three, well-appearing female in mild distress. HEENT: Head normocephalic, atraumatic, EOMI, pupils reactive, face symmetric, moist mucous membranes NECK: Supple, full range of motion CARDIOVASCULAR: Regular rate and rhythm without murmurs, rubs or gallops. RESPIRATORY: Breath sounds equal bilaterally, no wheezes rales or rhonchi. ABDOMEN: Soft, mild epigastric and right upper quadrant tenderness.. Normoactive bowel sounds all 4 quadrants. No guarding or rebound, rigidity, no mass : No CVA tenderness EXTREMITIES: Normal range of motion, no clubbing or edema. Neurovascularly intact NEUROLOGICAL: Cranial nerves II through XII grossly intact. Moving all extremities SKIN: Warm, dry, no petechiae, no rashes or lesions. Initial Vital Signs Initial Vital Signs: Vital Signs Temperature 98.2 F 11/02/23 01:20 Pulse Rate 83 11/02/23 01:20 Respiratory Rate 17 11/02/23 01:20 Blood Pressure 109/56 L 11/02/23 01:20 Pulse Oximetry 98 11/02/23 01:20 Oxygen Delivery Method Room Air 11/02/23 01:20 <Brooklynn Corley DO - Last Filed: 11/02/23 11:40> Initial Vital Signs Initial Vital Signs: Vital Signs Temperature 98.2 F 11/02/23 01:20 Pulse Rate 83 11/02/23 01:20 Respiratory Rate 17 11/02/23 01:20 Blood Pressure 109/56 L 11/02/23 01:20 Pulse Oximetry 98 11/02/23 01:20 Oxygen Delivery Method Room Air 11/02/23 01:20 Course <Violet Colby DO - Last Filed: 11/02/23 18:20> Orders Ordered: Discontinued Medications Sodium Chloride (Normal Saline 0.9%) 1,000 mls @ 1,000 mls/hr IV BOLUS ONE Stop: 11/02/23 02:21 Last Infusion: 11/02/23 02:28 Dose: Infused Documented By: Admin: 11/02/23 01:29 Dose: 1,000 mls/hr Documented By: Piperacillin Sod/Tazobactam (Sod 4.5 gm/ Sodium Chloride) 100 mls @ 200 mls/hr IV NOW ONE Stop: 11/02/23 03:12 Last Infusion: 11/02/23 03:52 Dose: Infused Documented By: Admin: 11/02/23 03:25 Dose: 200 mls/hr Documented By: MARY Sodium Chloride (Normal Saline 0.9%) 1,000 mls @ 125 mls/hr IV CONT ALEXANDRA Last Infusion: 11/02/23 08:45 Dose: Infused Documented By: Admin: 11/02/23 03:53 Dose: 125 mls/hr Documented By: MARY Ketorolac Tromethamine (Ketorolac 30 Mg/Ml Vial) 15 mg IV NOW ONE Stop: 11/02/23 02:45 Last Admin: 11/02/23 02:49 Dose: 15 mg Documented By: Morphine Sulfate (Morphine 2 Mg/Ml Inj) 2 mg IV NOW ONE Stop: 11/02/23 08:07 Last Admin: 11/02/23 08:10 Dose: 2 mg Documented By: MERLENE Pantoprazole Sodium (Pantoprazole 40 Mg Vial) 40 mg IV NOW ONE Stop: 11/02/23 01:23 Last Admin: 11/02/23 01:28 Dose: 40 mg Documented By: Vital Signs Vital signs: Vital Signs - 8 hr 11/02/23 04:00 11/02/23 04:00 11/02/23 04:30 Pulse Rate 87 Respiratory Rate Blood Pressure 87/50 L 95/54 L Pulse Oximetry 99 Oxygen Delivery Method Room Air 11/02/23 04:30 11/02/23 06:33 11/02/23 06:34 Pulse Rate 90 85 Respiratory Rate 18 Blood Pressure 101/65 101/65 Pulse Oximetry 100 100 Oxygen Delivery Method Room Air 11/02/23 06:34 11/02/23 08:03 11/02/23 08:04 Pulse Rate 90 94 H 95 H Respiratory Rate Blood Pressure Pulse Oximetry 100 98 98 Oxygen Delivery Method Room Air 11/02/23 08:04 11/02/23 08:30 11/02/23 08:47 Pulse Rate 95 H Respiratory Rate Blood Pressure 102/74 104/56 L Pulse Oximetry 99 Oxygen Delivery Method 11/02/23 08:47 Pulse Rate 98 H Respiratory Rate Blood Pressure Pulse Oximetry 99 Oxygen Delivery Method <Brooklynn Corley DO - Last Filed: 11/02/23 11:40> Orders Ordered: Discontinued Medications Sodium Chloride (Normal Saline 0.9%) 1,000 mls @ 1,000 mls/hr IV BOLUS ONE Stop: 11/02/23 02:21 Last Infusion: 11/02/23 02:28 Dose: Infused Documented By: Admin: 11/02/23 01:29 Dose: 1,000 mls/hr Documented By: Piperacillin Sod/Tazobactam (Sod 4.5 gm/ Sodium Chloride) 100 mls @ 200 mls/hr IV NOW ONE Stop: 11/02/23 03:12 Last Infusion: 11/02/23 03:52 Dose: Infused Documented By: Admin: 11/02/23 03:25 Dose: 200 mls/hr Documented By: MARY Sodium Chloride (Normal Saline 0.9%) 1,000 mls @ 125 mls/hr IV CONT ALEXANDRA Last Infusion: 11/02/23 08:45 Dose: Infused Documented By: Admin: 11/02/23 03:53 Dose: 125 mls/hr Documented By: MARY Ketorolac Tromethamine (Ketorolac 30 Mg/Ml Vial) 15 mg IV NOW ONE Stop: 11/02/23 02:45 Last Admin: 11/02/23 02:49 Dose: 15 mg Documented By: Morphine Sulfate (Morphine 2 Mg/Ml Inj) 2 mg IV NOW ONE Stop: 11/02/23 08:07 Last Admin: 11/02/23 08:10 Dose: 2 mg Documented By: MERLENE Pantoprazole Sodium (Pantoprazole 40 Mg Vial) 40 mg IV NOW ONE Stop: 11/02/23 01:23 Last Admin: 11/02/23 01:28 Dose: 40 mg Documented By: AB Vital Signs Vital signs: Vital Signs - 8 hr 11/02/23 04:00 11/02/23 04:00 11/02/23 04:30 Pulse Rate 87 Respiratory Rate Blood Pressure 87/50 L 95/54 L Pulse Oximetry 99 Oxygen Delivery Method Room Air 11/02/23 04:30 11/02/23 06:33 11/02/23 06:34 Pulse Rate 90 85 Respiratory Rate 18 Blood Pressure 101/65 101/65 Pulse Oximetry 100 100 Oxygen Delivery Method Room Air 11/02/23 06:34 11/02/23 08:03 11/02/23 08:04 Pulse Rate 90 94 H 95 H Respiratory Rate Blood Pressure Pulse Oximetry 100 98 98 Oxygen Delivery Method Room Air 11/02/23 08:04 11/02/23 08:30 11/02/23 08:47 Pulse Rate 95 H Respiratory Rate Blood Pressure 102/74 104/56 L Pulse Oximetry 99 Oxygen Delivery Method 11/02/23 08:47 Pulse Rate 98 H Respiratory Rate Blood Pressure Pulse Oximetry 99 Oxygen Delivery Method MDM - Abdominal Pain <Violet Colby, DO - Last Filed: 11/02/23 18:20> Lab Data 11/02/23 01:24 11/02/23 01:24 Labs: Lab Results 11/02/23 11/02/23 Range/Units 01:24 02:44 WBC 19.5 H (4.5-11.0) X10^3/uL RBC 4.46 (4.0-5.2) X10^6/uL Hgb 12.3 (12.0-16.0) g/dL Hct 37.9 (36-46) % MCV 85.1 (80-100) fL MCH 27.6 (26-34) PG MCHC 32.5 (30-36) % RDW 13.5 (11.6-14.8) % Plt Count 380 (150-400) X10^3/uL Neut % (Auto) 82.3 H (50-75) % Lymph % (Auto) 12.7 L (25-40) % [place] % (Auto) 4.2 (3-14) % Eos % (Auto) 0.5 L (2-4) % Baso % (Auto) 0.3 (0-2) % Neut # (Auto) 45476 H (0336-2686) /uL Lymph # (Auto) 2500 (6726-7729) /uL [place] # (Auto) 800 (0-900) /uL Eos # (Auto) 100 (0-450) /uL Baso # (Auto) 100 (0-100) /uL Sodium 137 (137-145) mmol/L Potassium 4.0 (3.4-5.1) mmol/L Chloride 107 (98-107) mmol/L Carbon Dioxide 22 (22-32) mmol/L BUN 12 (7-17) mg/dL Creatinine 0.45 L (0.52-1.04) mg/dL Estimated GFR > 60 (>60) mL/min BUN/Creatinine Ratio 26.7 H (6-22) Glucose 181 H (70-100) mg/dL Lactate 1.7 (0.7-2.1) mmol/L Calcium 8.5 (8.4-10.2) mg/dL Total Bilirubin 0.4 (0.2-1.3) mg/dL AST 47 H (14-36) IU/L ALT 22 (<35) IU/L Alkaline Phosphatase 67 (38-126) U/L Total Protein 7.4 (6.3-8.2) g/dL Albumin 3.8 (3.5-5.0) g/dL Globulin 3.6 (1.7-4.1) g/dL Albumin/Globulin Ratio 1.1 (1.0-2.8) Lipase 53 (23-300) U/L Procalcitonin < 0.03 (<0.5) ng/mL Urine RBC 0-1/hpf (0-5/HPF) Urine WBC 0-1/hpf (0-5/HPF) Ur Squamous Epith Cells 5-10 /hpf H (0-5/HPF) Urine Bacteria Many (>30) H (None) Urine Mucus 2+ H (Negative) Ur Culture Indicated? Cult not indicated Vol Urine Centrifuged 10ml (spun) Point of care testing: Point of Care Testing Test Results Negative Urine Dip Bedside Urine Glucose Negative Bedside Urine Bilirubin - Negative Bedside Urine Ketone - Negative Urine Specific [place] 1.025 Bedside Urine pH 6.0 Bedside Urine Protein - Negative Bedside Urine Urobilinogen - Negative Bedside Urine Nitrite - Negative Bedside Urine Leukocytes + 70 Esterase Imaging Data US - abdomen: Radiologist's Impression: Visualized pancreas is normal. TMs obscured by bowel gas. Liver is normal size and echotexture right lobe bleeding 17.1 cm 15 mm echogenic lesion right lobe of the liver probable hepatic hemangioma seen recent MRI report. Common duct 7.7 mm, gallbladder is physiologic distended, small layering gallstones, no gallbladder wall thickening, no pericholecystic fluid, no sonographic Roberts's sign. Cholelithiasis, borderline dilated common bile duct no definite choledocholithiasis. MRCP would be confirmatory and probable hepatic hemangioma right lobe of the liver appears more conspicuous on current exam see previous MR report. MDM Narrative Medical decision making narrative: This is a 33-year-old with history of prior choledocholithiasis which she was felt to have passed and was kept here overnight for observation. Symptoms resolved patient's enzymes improved and she was discharged home. She has not had any follow up since then. States she has epigastric pain as well as right upper quadrant improved after pain medication EN route with EMS. Patient is afebrile, nontoxic-appearing. Labs, patient has a white count of 19.5 hemoglobin 12.3 platelets of 380 with predominance of neutrophils. CMP shows normal electrolytes, creatinine 0.45, glucose of 181, lactate 1.7 calcium 8.5, bilirubin is 0.4 with an AST of 47, ALT of 22 and an alk-phos of 67, lipase is 53 with a procalcitonin of less than 0.03 Urine is negative. Point of care urine shows +leuks. Patient received fluids and additional dose of Toradol. Abdominal ultrasound shows normal liver with likely hepatic hemangioma, common duct 7.7 mm gallbladder distended with small layering gallstones no gallbladder wall thickening, no pericholecystic fluid and no sonographic Roberts's sign. Patient's LFTs are improved from prior but with similar symptoms and prior choledocolithiasis, MRCP was ordered. Patient signed out to Dr. Corley while awaiting MRCP. Dr. Corley-patient signed out to me by Dr. Colby I have seen evaluated patient myself. 3-year-old female history of cholelithiasis admitted in April for possible cholecystitis choledocholithiasis presents again with the epigastric pain. They tried to follow-up outpatient and get a referral but things just did not quite happened. She is still having some mild epigastric pain. Ultrasound reviewed cholelithiasis without any evidence of cholecystitis. MRCP does not show any evidence of choledocholithiasis. She is leukocytosis of 19 but no elevated liver enzymes or bilirubin. She received Toradol previously for pain got morphine. 08:35 Dr. Middleton on-call surgery updated on patient's symptoms test results recommends outpatient follow-up no need for admission today. States that she can probably get her in this week. I asked specifically about antibiotics but without fever does not think that she needs to go home on them. <Brooklynn Jory, DO - Last Filed: 11/02/23 11:40> Lab Data Labs: Lab Results 11/02/23 11/02/23 Range/Units 01:24 02:44 WBC 19.5 H (4.5-11.0) X10^3/uL RBC 4.46 (4.0-5.2) X10^6/uL Hgb 12.3 (12.0-16.0) g/dL Hct 37.9 (36-46) % MCV 85.1 (80-100) fL MCH 27.6 (26-34) PG MCHC 32.5 (30-36) % RDW 13.5 (11.6-14.8) % Plt Count 380 (150-400) X10^3/uL Neut % (Auto) 82.3 H (50-75) % Lymph % (Auto) 12.7 L (25-40) % [place] % (Auto) 4.2 (3-14) % Eos % (Auto) 0.5 L (2-4) % Baso % (Auto) 0.3 (0-2) % Neut # (Auto) 76214 H (4722-7079) /uL Lymph # (Auto) 2500 (5656-1888) /uL [place] # (Auto) 800 (0-900) /uL Eos # (Auto) 100 (0-450) /uL Baso # (Auto) 100 (0-100) /uL Sodium 137 (137-145) mmol/L Potassium 4.0 (3.4-5.1) mmol/L Chloride 107 (98-107) mmol/L Carbon Dioxide 22 (22-32) mmol/L BUN 12 (7-17) mg/dL Creatinine 0.45 L (0.52-1.04) mg/dL Estimated GFR > 60 (>60) mL/min BUN/Creatinine Ratio 26.7 H (6-22) Glucose 181 H (70-100) mg/dL Lactate 1.7 (0.7-2.1) mmol/L Calcium 8.5 (8.4-10.2) mg/dL Total Bilirubin 0.4 (0.2-1.3) mg/dL AST 47 H (14-36) IU/L ALT 22 (<35) IU/L Alkaline Phosphatase 67 (38-126) U/L Total Protein 7.4 (6.3-8.2) g/dL Albumin 3.8 (3.5-5.0) g/dL Globulin 3.6 (1.7-4.1) g/dL Albumin/Globulin Ratio 1.1 (1.0-2.8) Lipase 53 (23-300) U/L Procalcitonin < 0.03 (<0.5) ng/mL Urine RBC 0-1/hpf (0-5/HPF) Urine WBC 0-1/hpf (0-5/HPF) Ur Squamous Epith Cells 5-10 /hpf H (0-5/HPF) Urine Bacteria Many (>30) H (None) Urine Mucus 2+ H (Negative) Ur Culture Indicated? Cult not indicated Vol Urine Centrifuged 10ml (spun) Point of care testing: Point of Care Testing Test Results Negative Urine Dip Bedside Urine Glucose Negative Bedside Urine Bilirubin - Negative Bedside Urine Ketone - Negative Urine Specific [place] 1.025 Bedside Urine pH 6.0 Bedside Urine Protein - Negative Bedside Urine Urobilinogen - Negative Bedside Urine Nitrite - Negative Bedside Urine Leukocytes + 70 Esterase MDM Narrative Medical decision making narrative: This is a 33-year-old with history of prior choledocholithiasis which she was felt to have passed and was kept here overnight for observation. Symptoms resolved patient's enzymes improved and she was discharged home. She has not had any follow up since then. States she has epigastric pain as well as right upper quadrant improved after pain medication EN route with EMS. Patient is afebrile, nontoxic-appearing. Labs, patient has a white count of 19.5 hemoglobin 12.3 platelets of 380 with predominance of neutrophils. CMP shows normal electrolytes, creatinine 0.45, glucose of 181, lactate 1.7 calcium 8.5, bilirubin is 0.4 with an AST of 47, ALT of 22 and an alk-phos of 67, lipase is 53 with a procalcitonin of less than 0.03 Urine is negative. Point of care urine shows +leuks. Patient received fluids and additional dose of Toradol. Abdominal ultrasound shows normal liver with likely hepatic hemangioma, common duct 7.7 mm gallbladder distended with small layering gallstones no gallbladder wall thickening, no pericholecystic fluid and no sonographic Roberts's sign. Patient's LFTs are improved from prior but with similar symptoms and prior choledocolithiasis, MRCP was ordered. Dr. Corley-patient signed out to me by Dr. Colby I have seen evaluated patient myself. 3-year-old female history of cholelithiasis admitted in April for possible cholecystitis choledocholithiasis presents again with the epigastric pain. They tried to follow-up outpatient and get a referral but things just did not quite happened. She is still having some mild epigastric pain. Ultrasound reviewed cholelithiasis without any evidence of cholecystitis. MRCP does not show any evidence of choledocholithiasis. She is leukocytosis of 19 but no elevated liver enzymes or bilirubin. She received Toradol previously for pain got morphine. 08:35 Dr. Middleton on-call surgery updated on patient's symptoms test results recommends outpatient follow-up no need for admission today. States that she can probably get her in this week. I asked specifically about antibiotics but without fever does not think that she needs to go home on them. Discharge Plan Departure Patient Disposition: Home Clinical Impression: Cholelithiasis Instructions: DI for Gallstones Activity Restrictions/Additional Instructions: *You have been diagnosed with gallstones *What to do: I called and spoke with surgeon today. They will try and get in this week for surgery but you do not need to stay today. Recommend following gallbladder diet low-fat foods. *Continue to take medications as directed [place] 1 tablet every 6 hours if needed for severe pain Zofran 4 mg every 8 hours if needed for nausea or vomiting *Follow up with your primary care provider in 2-3 days or call [phone] Middleton's office 1st thing tomorrow morning they are aware of you *Return to ER if you should have increasing pain nausea vomiting fever or any new, worsening or concerning symptoms CONTROLLED SUBSTANCE DISCHARGE (Narcotoic/benzodiazepine/Flexeril/Phenergan) 1. You have been prescribed narcotic medications, it does have acetaminophen/Tylenol/paracetamol in it, DO NOT TAKE MORE THAN 4,00mg in 24 hours of Tylenol. TRAMADOL DOES NOT CONTAIN TYLENOL 2. Please understand that we cannot provide further refills of narcotics, benzodiazepines or controlled substances through the ED and her pain management will need to be through your provider. 3. While on these medications you cannot drive or operate heavy machinery. 4. You cannot sign legal documents or perform any duties such as this. 5. As long as you're taking opiate pain medications he should also be taking a stool softener such as Colace, Dulcolax, MiraLAX or prune juice, to help avoid constipation. Prescriptions: New hydrocodone-acetaminophen 5-325 mg tablet 1 tab PO Q6H PRN (Reason: pain) Qty: 10 0RF ondansetron 4 mg tablet,disintegrating 4 mg PO Q6-8H PRN (Reason: nausea and vomiting) Qty: 10 0RF No Action drospirenone-ethinyl estradiol 3-0.02 mg tablet 1 tab PO DAILY Qty: 28 6RF Stand Alone Forms: Patient Portal/API
--- NOTE | 2023-11-02 01:23 | DI.US.S_ITS ---
PROCEDURE: US ABDOMEN LIMITED INDICATIONS: epigastric/RUQ pain, hx gallstones TECHNIQUE: Real-time focused scanning was performed of the abdomen, with image documentation. COMPARISON: [facility], MR, MR ABDOMEN WO/W CON, 04/20/2023, 8:22. [facility], US, US ABDOMEN LIMITED, 04/19/2023, 16:42. FINDINGS: The liver demonstrates enlarged size. The liver demonstrates generalized minimally increased echogenicity. This decreases ultrasound sensitivity for detection of hepatic masses. There is again seen a right liver hemangioma, 1.5 cm. Numerous layering gallstones are seen, with the largest measuring 4 mm. The gallbladder wall is not thickened, measuring 3 mm or less. No specific pericholecystic fluid is seen. The sonographic Roberts sign is negative. There is minimal biliary dilatation, measuring 7.7 mm. No significant pancreatic abnormality is seen on these images. IMPRESSION: Gallstones are seen, without additional sonographic signs of cholecystitis. There is minimal biliary dilatation, 7.7 mm. Additional findings: Liver hemangioma Note: No significant discrepancy from the preliminary report. Dictated by: Burak Reeves M.D. on 11/02/2023 at 6:34 Approved by: Burak Reeves M.D. on 11/02/2023 at 6:36
[2023-11-02] MEDS: PANTOPRAZOLE 40 MG VIAL IV (01:28)
[2023-11-02] MEDS: SODIUM CHLORIDE 0.9% 1,000 ML 1000 ML IV (01:29)
[2023-11-02 01:30] LABS: Add Manual Diff / Slide Review NO; Basophils Absolute Auto 100 /uL (0-100); Basophils Percent Auto 0.3 % (0-2); Eosinophils Absolute Auto 100 /uL (0-450); Eosinophils Percent Auto 0.5 % (2-4); Hematocrit 37.9 % (36-46); Hemoglobin 12.3 g/dL (12.0-16.0); Lymphocytes Absolute Auto 2500 /uL (1100-4500); Lymphocytes Percent Auto 12.7 % (25-40); Mean Corpuscular HGB Conc 32.5 % (30-36); Mean Corpuscular Hemoglobin 27.6 PG (26-34); Mean Corpuscular Volume 85.1 fL (80-100); Monocytes Absolute Auto 800 /uL (0-900); Monocytes Percent Auto 4.2 % (3-14); Neutrophils Absolute Auto 16100 /uL (1500-7000); Neutrophils Percent Auto 82.3 % (50-75); Platelet Count 380 X10^3/uL (150-400); Red Blood Cell Count 4.46 X10^6/uL (4.0-5.2); Red Cell Distribution Width 13.5 % (11.6-14.8); White Blood Cell Count 19.5 X10^3/uL (4.5-11.0)
[2023-11-02 01:41] LABS: Alanine Aminotransferase 22 IU/L (<35); Albumin 3.8 g/dL (3.5-5.0); Albumin Globulin Ratio 1.1 (1.0-2.8); Alkaline Phosphatase 67 U/L (38-126); Aspartate Aminotransferase 47 IU/L (14-36); BUN Creatinine Ratio 26.7 (6-22); Bilirubin Total 0.4 mg/dL (0.2-1.3); Blood Urea Nitrogen 12 mg/dL (7-17); Calcium 8.5 mg/dL (8.4-10.2); Carbon Dioxide 22 mmol/L (22-32); Chloride 107 mmol/L (98-107); Estimated Glomerular Filt Rate > 60 mL/min (>60); Globulin 3.6 g/dL (1.7-4.1); Glucose 181 mg/dL (70-100); HEMOLYSIS 42 (0-50); Lipase 53 U/L (23-300); Sodium 137 mmol/L (137-145); Total Protein 7.4 g/dL (6.3-8.2)
[2023-11-02 01:49] LABS: Lactate (Lactic Acid) 1.7 mmol/L (0.7-2.1)
[2023-11-02 02:08] LABS: Procalcitonin < 0.03 ng/mL (<0.5)
[2023-11-02] MEDS: KETOROLAC 30 MG/ML VIAL 15 MG IV (02:49)
[2023-11-02 02:56] LABS: Bacteria Urine Many (>30); Mucus Urine 2+ (Negative); RBC Urine 0-1/HPF (0-5/HPF); Squamous Epithelial Cell Urine 5-10 /HPF (0-5/HPF); Urine Volume 10mL (spun); WBC Urine 0-1/HPF (0-5/HPF)
[2023-11-02 02:57] LABS: Culture Indicated Urine Cult Not Indicated
[2023-11-02] MEDS: PIPERACILLIN/TAZO 4.5 GM in SODIUM CHLORIDE 0.9% 100 ML IV (03:25)
[2023-11-02] MEDS: SODIUM CHLORIDE 0.9% 1,000 ML 125 ML IV (03:53)
--- NOTE | 2023-11-02 04:51 | PC.NURSE ---
pt waiting for MRCP in am, at bedside, without c/o pain at this time, abd soft, no n/v
--- NOTE | 2023-11-02 07:47 | DI.MRI.S_ITS ---
PROCEDURE: MR ABDOMEN WO/W CON INDICATIONS: choledocolithiasis TECHNIQUE: Coronal HASTE, axial 2D FLASH in- and [id number]; axial breath-hold T2 FSE. Dynamic axial VIBE during the administration of contrast; post-contrast coronal VIBE or 2D FLASH with fat saturation from the hepatic dome to the iliac crests. Optional diffusion weighted imaging and ADC may be performed. COMPARISON: [facility], , MR ABDOMEN WO/W CON, 04/20/2023, 8:22. [facility], US, US ABDOMEN LIMITED, 11/02/2023, 1:58. [facility], US, US ABDOMEN LIMITED, 04/19/2023, 16:42. FINDINGS: Image quality: This examination is limited by involuntary motion artifact. Lung bases: Unremarkable. Liver: There is a T2 hyperintense right liver lesion, which demonstrates peripheral puddling of contrast. The liver is otherwise unremarkable. Gallbladder: Numerous gallstones are seen within the gallbladder. No gallbladder wall thickening or pericholecystic fluid can be seen. Biliary ducts: There is mild biliary ductal dilatation, measuring 8-9 mm. No stones can be seen within the common bile duct. Pancreas: No ductal dilation. Spleen: Size is within normal limits. Adrenal Glands: No adrenal nodules. Kidneys and Ureters: No hydronephrosis. No solid mass. No complex renal cystic lesion which requires follow up. Stomach and Bowel: Normal colonic caliber, without significant wall thickening. Peritoneum: No abnormal intraperitoneal fluid. No free air. Ventral Wall: No hernia. Abdominal Nodes: No retroperitoneal or mesenteric adenopathy by size criteria. Vessels: Aorta and inferior vena cava are normal in size. Bones: No aggressive osseous abnormality. IMPRESSION: Numerous layering gallstones are seen, without additional signs of cholecystitis. There is mild biliary ductal dilatation seen, yet without choledocholithiasis. Additional findings: Right liver hemangioma Dictated by: Burak Reeves M.D. on 11/02/2023 at 7:14 Approved by: Burak Reeves M.D. on 11/02/2023 at 7:19
[2023-11-02] MEDS: MORPHINE 2 MG/ML INJ IV (08:10)
== END 2023-11-02 08:53 | disposition home or self-care (01) ==
PROVIDERS: Emergency Medicine; Emergency Provider Emergency Medicine; PCP Physician Assistant
DX: K80.20 Calculus of gallbladder without cholecystitis without obstruction (principal)
CPT/HCPCS: 36415; 74183; 76705; 80053; 81003; 81015; 81025; 83605; 83690; 84145; 85025; 87040; 96361; 96365; 96375; 99284; A9579; C9113; J1885; J2270; J2543

== ENCOUNTER 2023-11-18 08:51 | Day surgery (SDC) | payer OTHER, SELFPAY ==
[2023-11-03 08:53] VITALS: BMI 25.9
[2023-11-10 12:20] VITALS: BMI 24.8
[2023-11-18] VITALS (7 sets, daily range): BP systolic 116–127; BP diastolic 75–81; PULSE 62–75; RESP 16–22; TEMP 36.3–36.4; O2SAT 99–100; BMI 23.7
--- NOTE | 2023-11-18 | DI.RAD.S_ITS ---
PROCEDURE: XR CHOLANGIOGRAM OPERATIVE INDICATIONS: [facility] COMPARISON: None. FINDINGS: Biliary ducts: The surgeon injected contrast into the biliary ducts after cannulation of the cystic duct stump. Visualized intra- and extrahepatic bile ducts are normal in caliber, without strictures. No intraluminal filling defects to suggest retained ductal stones or sludge. No evidence for iatrogenic ductal injury. Appearance of contrast extravasation along the inferior right lateral aspect of the liver. Duodenum: Contrast flows promptly through the sphincter of Oddi into the duodenum, which appears normal in caliber. IMPRESSION: Recommend correlation to operative report for possible contrast extravasation at the cholecystectomy site. Dictated by: Isabelle Lucia M.D. on 11/20/2023 at 11:21 Approved by: Isabelle Lucia M.D. on 11/20/2023 at 11:22
--- NOTE | 2023-11-18 | PATH_ITS ---
[facility] Accession Number: [id number] No. of containers..01 Tissue . 01 Material submitted: . gallbladder - GALLBLADDER . 01 Diagnosis: GALLBLADDER, CHOLECYSTECTOMY: Mild chronic calculous cholecystitis with cholesterol polyp and reactive changes. Negative for dysplasia and malignancy. CHRISSIE 11/25/2023 2017 Local . 01 Electronically signed: . Demetri Charles MD, Pathologist NPI- [id number] . 01 Gross description: . Received in formalin with two identifiers and gallbladder, is an intact gallbladder measuring 7.3 x 2.0 x 2.0 cm with an unremarkable external surface. The cystic duct margin is inked blue, and no pericystic lymph node is identified. The lumen contains multiple yellow bosselated calculi measuring up to 0.6 cm in greatest dimension grossly obstructing the cystic duct and admixed with green mucoid to semisolid bile. The mucosa is green-brown and velvety with no yellow discoloration and a polypoid lesion measuring 0.6 x 0.4 x 0.4 cm. The serosa adjacent to the polyp is inked orange. An annular area of slightly thickened wall measures 3.8 cm in circumference by 0.7 cm long and 0.3 cm thick. The adjacent serosa is also inked orange. The polyp is located within the annular thickened area. The remaining mucosa is unremarkable with grant that average 0.2 cm thick. Food Tray Assembler sections are submitted as follows: . A1: Cystic duct margin en face and unremarkable full thickness sections. A2: Polyp and rep sections of slightly thickened wall. ([id number]) /MRV 11/20/2023 1437 Local . 01 Pathologist provided ICD-10: K80.20 . 01 CPT . 619272 [facility]formed at: [facility] [address], [place], [place] [id number] MD Anders Solorzano MD Phone: [phone]
[2023-11-18] MEDS: SCOPOLAMINE 1 PATCH TOP (09:43)
[2023-11-18] MEDS: ACETAMINOPHEN 325 MG TABLET 975 MG PO (09:43)
[2023-11-18] MEDS: LACTATED RINGERS 1,000 ML 42 ML IV ×2 (09:44→12:39)
--- NOTE | 2023-11-18 10:37 | PM.PREOP ---
Pre-operative Note COVID-19 COVID-19 status: Not tested Interval Note History & Physical reviewed/Exam performed by Physician: Yes Changes to H&P: No ASA Class (for procedural sedation): II
[2023-11-18] MEDS: CEFAZOLIN 2 GM/100 ML PREMIX 100 ML IV (10:54)
--- NOTE | 2023-11-18 11:16 | SUR.OPER ---
Supine on padded OR bed, head on pillow, arms secured on padded arm boards at <90 degrees abduction, legs uncrossed, safety belt at thigh, tape over blanket over lower legs.
--- NOTE | 2023-11-18 11:17 | SUR.OPER ---
Supine on padded OR bed, head on pillow, safety belt at thigh, left arm padded and tucked at side. Right arm secured on padded arm board <90 degrees abduction. Legs uncrossed. Padded footboard in place. Tape over blanket to secure lower legs.
[2023-11-18] MEDS: iopamidoL 30 ML VIAL INJ (11:31)
[2023-11-18] MEDS: BUPIVACAINE 0.5% (PF) 30 ML, EPINEPHrine 0.15 MG INJ (11:32)
--- NOTE | 2023-11-18 11:58 | PM.OP.1 ---
Operative Date/Time/Diagnoses Date of procedure: 11/18/23 Time of procedure: 11:58 Pre-op diagnosis: Cholelithiasis Post-op diagnosis: same Procedure & Clinicians Procedure: Laparoscopic cholecystectomy with intraoperative cholangiogram Same procedure as scheduled: Yes Surgeon: Terence Herron [employer] Hand Engraver: Prashant eFlipe Anesthesia Type: General Operative Notes Procedure in detail: The patient was given preoperative antibiotic. The patient was brought to the operating room, placed on the table in the supine position. General endotracheal anesthesia was induced. The abdomen was prepped and draped. A time-out was performed. We made a 1 cm infraumbilical incision. We dissected down to the base of the umbilical stalk using cautery. We grasped the umbilical stalk with a Yareli clamp to elevate the abdominal wall. We scored the fascia in the midline with cautery 1 cm. We pierced the peritoneum with a Peon clamp. The Yolanda port was placed and the abdomen was insufflated to 15 mmHg. A 5 mm 30 degree laparoscopic was inserted. There was no evidence of any injury from the entry. Next, we placed 5 mm ports in the subxiphoid position and right upper quadrant at the midclavicular line and anterior axillary line. The patient was then positioned in reverse Trendelenburg and the table was tilted to the left. The gallbladder was grasped at the dome and retracted cephalad. We then dissected the cystic structures with a combination of hook cautery and blunt dissection. We obtained a critical view. Next, a cholangiogram was performed using the 6 [place] ureteral catheter. There was good flow of contrast into the duodenum and liver with no obvious filling defects. We then placed hemoclips on the cystic duct and artery and divided the cystic duct and artery sharply between the clips. The gallbladder was then dissected off the liver and placed in a specimen retrieval bag. We irrigated the right upper quadrant and all the aspirate returned clear. We then removed the 5 mm ports under direct vision we removed the Yolanda port. We then injected some local into the fascia and closed the fascia with 2 interrupted 0 Vicryl sutures. The skin incisions were closed with 4 Monocryl and Steri-Strips were applied. Band-Aids were applied over the Steri-Strips. EBL: 30 mL Specimen: Gallbladder and contents Prashant BOATENG provided assistance with exposure, retraction and closure of incisions. Post-operative Condition: stable Disposition: PACU
[2023-11-18] MEDS: OXYCODONE IR 5 MG TABLET PO (12:37)
== END 2023-11-18 13:38 | disposition home or self-care (01) ==
PROVIDERS: PCP Physician Assistant; Referring Provider Surgery; Visit Provider Surgery
PROC: 0FT44ZZ Resection of Gallbladder, Percutaneous Endoscopic Approach (ICD-10-PCS; CPT 47562; principal; 2023-11-18 10:15)
DX: K80.10 Calculus of gallbladder with chronic cholecystitis without obstruction (principal)
CPT/HCPCS: 47563; 74300; 76000; J0171; J0690; J1100; J1885; J2405; J2704; J3010; Q9967

== ENCOUNTER → 2024-05-06 12:41 | Outpatient (CLI) | payer BC, SELFPAY ==
[2023-11-03 08:53] VITALS: BMI 25.9
--- NOTE | 2024-05-06 12:42 | DI.CT.S_ITS ---
PROCEDURE: CT ABDOMEN PELVIS W CON INDICATIONS: Abdominal pain TECHNIQUE: After the administration of intravenous contrast, axial sections acquired from the lung bases to the pubic symphysis. Coronal and sagittal reformats were performed. For radiation dose reduction, the following was used: automated exposure control, adjustment of mA and/or kV according to patient size. COMPARISON: [facility], MR, MR ABDOMEN WO/W CON, 11/02/2023, 6:53. FINDINGS: Image quality: Diagnostic. Lower Chest: No significant findings. ABDOMEN: Liver: Small hemangioma in the right lobe of the liver measuring 1.1 cm. Gallbladder: Absent. No fluid collection. Biliary ducts: No biliary dilation. Pancreas: No ductal dilation. Spleen: Size is within normal limits. Adrenal Glands: No adrenal nodules. Kidneys and Ureters: No hydronephrosis. No solid mass. No complex renal cystic lesion which requires follow up. Stomach and Bowel: Normal colonic caliber, without significant wall thickening. Normal appendix. No small bowel obstruction. Peritoneum: No abnormal intraperitoneal fluid. No free air. Ventral Wall: No significant ventral hernia. Abdominal Nodes: No retroperitoneal or mesenteric adenopathy by size criteria. Vessels: Aorta and inferior vena cava are normal in size. PELVIS: Pelvic Organs: Vertically oriented uterus. Bladder: No stone. Pelvic Nodes: No enlarged lymph nodes. Miscellaneous: No inguinal hernias are seen. Bones: No aggressive osseous abnormality. IMPRESSION: 1. No acute abnormality identified. No fluid collection. 2. Normal appendix. No hydronephrosis. 3. Post cholecystectomy. Small hemangioma in the liver. Dictated by: Adam Berger M.D. on 05/06/2024 at 16:37 Approved by: Adam Berger M.D. on 05/06/2024 at 16:42
== END ==
LOC: CT 12:42
PROVIDERS: PCP Physician Assistant; Referring Provider Surgery; Visit Provider Surgery
DX: D18.09 Hemangioma of other sites (principal); R10.11 Right upper quadrant pain; Z90.49 Acquired absence of other specified parts of digestive tract
CPT/HCPCS: 74177; Q9967

== ENCOUNTER → 2025-02-03 08:51 | Outpatient (CLI) | payer BC, SELFPAY ==
[2023-11-03 08:53] VITALS: BMI 25.9
[2025-02-03 10:11] LABS: Add Manual Diff / Slide Review NO; Hematocrit 39.7 % (36-46); Hemoglobin 13.2 g/dL (12.0-16.0); Lymphocytes Absolute Auto 3400 /uL (1100-4500); Mean Corpuscular HGB Conc 33.3 % (30-36); Mean Corpuscular Hemoglobin 28.8 PG (26-34); Mean Corpuscular Volume 86.4 fL (80-100); Platelet Count 394 X10^3/uL (150-400)
[2025-02-03 10:18] LABS: Hemoglobin A1C% w Est Avg Glu 5.5 % (4.0-6.0)
[2025-02-03 10:30] LABS: Alanine Aminotransferase 32 IU/L (<35); Albumin 4.4 g/dL (3.5-5.0); Albumin Globulin Ratio 1.3 (1.0-2.8); Alkaline Phosphatase 84 U/L (38-126); Blood Urea Nitrogen 8 mg/dL (7-17); Calcium 9.3 mg/dL (8.4-10.2); Carbon Dioxide 29 mmol/L (22-32); Chloride 102 mmol/L (98-107); Cholesterol 173 mg/dL (140-199); Estimated Glomerular Filt Rate > 60 mL/min (>60); Globulin 3.3 g/dL (1.7-4.1); Glucose 88 mg/dL (70-99); HDL Cholesterol 49 mg/dL (40-60); HEMOLYSIS < 15 (0-50); Potassium 4.1 mmol/L (3.4-5.1); Sodium 137 mmol/L (137-145); Total Protein 7.7 g/dL (6.3-8.2); Triglycerides 127 mg/dL (35-150); Uric Acid 6.7 mg/dL (2.5-6.2)
== END ==
PROVIDERS: PCP Physician Assistant; Referring Provider Student in an Organized Health Care Education/Training Program; Visit Provider Student in an Organized Health Care Education/Training Program
DX: Z13.1 Encounter for screening for diabetes mellitus (principal); Z13.220 Encounter for screening for lipoid disorders; Z76.89 Persons encountering health services in other specified circumstances
CPT/HCPCS: 36415; 80053; 80061; 83036; 84550; 85025